=== PATIENT | male | born 1990 | race Two or more races ===

== ENCOUNTER 2017-10-12 23:21 | Inpatient (IN) | payer OTHER, MEDICAID ==
[2017-10-13] MEDS: CEFTRIAXONE 1 GM/50 ML (PMX) 50 ML IVPB ×2 (00:15→17:57)
[2017-10-13 00:33] LABS: ADD MAN DIFF? NO
[2017-10-13] MEDS: SODIUM CHLORIDE 0.9% 1L BAG IV* (00:33)
[2017-10-13 00:36] LABS: BASOPHILS % 0.3 % (0.0-2.0); HEMATOCRIT 44.2 % (42.0-52.0); HEMOGLOBIN 15.5 g/dl (14.0-18.0); LYMPHOCYTES # 0.8 10^3/ul (0.8-2.9); LYMPHOCYTES % 20.2 % (15.0-51.0); MEAN CORPUSCULAR HEMOGLOBIN 30.9 pg (29.0-33.0); MEAN CORPUSCULAR HGB CONC 35.1 g/dl (32.0-37.0); MEAN PLATELET VOLUME 9.8 fl (7.4-10.4); MONOCYTE # 0.4 10^3/ul (0.3-0.9); MONOCYTES % 9.9 % (0.0-11.0); NEUTROPHIL # 2.7 10^3/ul (1.6-7.5); NEUTROPHILS % 69.1 % (39.0-77.0); PLATELET COUNT 190 10^3/UL (140-415); RED BLOOD COUNT 5.02 10^6/ul (4.70-6.10)
[2017-10-13 00:36] LABS: WHITE BLOOD COUNT 3.9 10^3/ul (4.8-10.8)
[2017-10-13] MEDS: ACETAMINOPHEN 650 MG SUPP PR (01:00)
[2017-10-13 01:03] LABS: LACTIC ACID 0.9 mmol/L (0.5-2.0)
[2017-10-13] MEDS: OSELTAMIVIR PHOSPHATE (6 MG/ML PO SYG) PO (01:31)
[2017-10-13 01:36] LABS: INR 1.09; PROTIME 14.2 Sec (11.9-14.9); PT RATIO 1.1
[2017-10-13 01:37] LABS: PARTIAL THROMBOPLASTIN TIME 32.1 Sec (25.0-35.0)
[2017-10-13 01:49] LABS: ALANINE AMINOTRANSFERASE 18 IU/L (13-69); ALBUMIN 3.5 g/dl (3.3-4.9); ALBUMIN/GLOBULIN RATIO 1.09; ALKALINE PHOSPHATASE 61 IU/L (42-121); ANION GAP 21 (8-16); ASPARTATE AMINO TRANSFERASE 24 IU/L (15-46); BILIRUBIN,INDIRECT 0.4 mg/dl (0-1.1); BILIRUBIN,TOTAL 0.4 mg/dl (0.2-1.3); BLOOD UREA NITROGEN 15 mg/dl (7-20); CALCIUM 8.3 mg/dl (8.4-10.2); CARBON DIOXIDE 20 mmol/L (21-31); CHLORIDE 108 mmol/L (97-110); CREATININE 0.88 mg/dl (0.61-1.24); GLUCOSE 93 mg/dl (70-220); LIPASE 96 U/L (23-300); POTASSIUM 3.9 mmol/L (3.5-5.1); SODIUM 145 mmol/L (135-144); TOTAL PROTEIN 6.7 g/dl (6.1-8.1)
[2017-10-13] MEDS: FAMOTIDINE 20 MG INJ IV ×3 (02:00→20:22)
[2017-10-13] MEDS ORDERED: NACL 0.9% 3 ML SYG IV (02:00)
[2017-10-13 02:24] LABS: TROPONIN-I < 0.012 ng/ml (0.00-0.12)
[2017-10-13 03:16] LABS: ADD UMIC YES; UR ASCORBIC ACID 40 mg/dL (NEGATIVE); UR BILIRUBIN (Dip) NEGATIVE (NEGATIVE); UR BLOOD (Dip) NEGATIVE (NEGATIVE); UR CLARITY SLIGHTLY CLOUDY (CLEAR); UR COLOR YELLOW (YELLOW); UR GLUCOSE (Dip) NEGATIVE (NEGATIVE); UR KETONES (Dip) 1+ mg/dL (NEGATIVE); UR LEUKOCYTE ESTERASE (Dip) NEGATIVE Leu/ul (NEGATIVE); UR MUCUS MANY /HPF (NONE SEEN); UR NITRITE (Dip) NEGATIVE (NEGATIVE); UR RBC 0 /HPF (0-5); UR SPECIFIC GRAVITY (Dip) 1.033 (1.003-1.030); UR TOTAL PROTEIN (Dip) 1+ mg/dl (NEGATIVE); UR UROBILINOGEN (Dip) NEGATIVE (NEGATIVE); UR WBC 9 /HPF (0-5)
[2017-10-13 04:28] LABS: LACTIC ACID 0.8 mmol/L (0.5-2.0)
[2017-10-13] MEDS: SOD CHLORIDE 0.9% 1,000 ML IV ×2 (04:32→14:53)
[2017-10-13 06:32] LABS: LACTIC ACID 0.9 mmol/L (0.5-2.0)
[2017-10-13] MEDS ORDERED: ALPRAZOLAM 0.5 MG TAB PO (16:30)
[2017-10-13] MEDS: ACETAMINOPHEN 325 MG TAB PO (17:07)
[2017-10-13] MEDS: OSELTAMIVIR 75 MG CAP PO (17:08)
[2017-10-13] MEDS: 1/2 NS + KCL 20 MEQ 1,000 ML IV (17:57)
[2017-10-13] MEDS: L ACIDOPHIL/B LACTIS/B LONGUM CAPSULE PO ×2 (17:57→20:23)
[2017-10-13] MEDS: ONDANSETRON 4 MG TAB PO (18:02)
[2017-10-13] MEDS ORDERED: HYDROCODONE/APAP (5/325) TAB PO (19:30)
[2017-10-13] MEDS: HYDROCODONE/APAP (5/325) TAB PO (19:36)
[2017-10-13] MEDS ORDERED: BUDESONIDE (NEB) 0.5MG/2ML AMP (19:39)
[2017-10-13] MEDS: BUDESONIDE (NEB) 0.5MG/2ML AMP INH (20:44)
[2017-10-14] MEDS: SOD CHLORIDE 0.9% 1,000 ML IV (04:13)
[2017-10-14] MEDS: 1/2 NS + KCL 20 MEQ 1,000 ML IV ×2 (05:19→17:47)
[2017-10-14] MEDS: INFLUENZA VIRUS VACCINE 0.5 ML (DISPENSING) IM* (09:00)
[2017-10-14] MEDS: BUDESONIDE (NEB) 0.5MG/2ML AMP INH ×3 (09:00→19:27)
[2017-10-14] MEDS: FAMOTIDINE 20 MG INJ IV ×2 (09:34→20:54)
[2017-10-14] MEDS: L ACIDOPHIL/B LACTIS/B LONGUM CAPSULE PO ×2 (09:39→20:54)
[2017-10-14] MEDS ORDERED: LORAZEPAM 2 MG INJ IV (11:30)
[2017-10-14] MEDS: OSELTAMIVIR 75 MG CAP PO ×2 (12:04→20:55)
[2017-10-14] MEDS: ALBUTEROL 0.083% (NEB) 2.5 MG/3 ML AMP NEB (13:01)
[2017-10-14] MEDS: CEFTRIAXONE 1 GM/50 ML (PMX) 50 ML IVPB (17:10)
[2017-10-14 18:07] LABS: ANION GAP 15 (8-16); BLOOD UREA NITROGEN 11 mg/dl (7-20); CALCIUM 8.5 mg/dl (8.4-10.2); CARBON DIOXIDE 28 mmol/L (21-31); CHLORIDE 98 mmol/L (97-110); CREATININE 0.73 mg/dl (0.61-1.24); GLUCOSE 89 mg/dl (70-220); SODIUM 137 mmol/L (135-144)
[2017-10-14] MEDS ORDERED: ACETAMINOPHEN 325 MG TAB PO (19:00)
[2017-10-14] MEDS: LEVETIRACETAM 500 MG (PMX) 100 ML IVPB (20:55)
[2017-10-15] MEDS: 1/2 NS + KCL 20 MEQ 1,000 ML IV ×2 (08:00→21:37)
[2017-10-15] MEDS: L ACIDOPHIL/B LACTIS/B LONGUM CAPSULE PO ×2 (08:01→21:37)
[2017-10-15] MEDS: OSELTAMIVIR 75 MG CAP PO ×2 (08:01→21:37)
[2017-10-15] MEDS: FAMOTIDINE 20 MG INJ IV ×2 (08:02→21:37)
[2017-10-15] MEDS: LEVETIRACETAM 500 MG (PMX) 100 ML IVPB ×2 (09:25→21:38)
[2017-10-15] MEDS: ENOXAPARIN 40 MG/0.4 ML SYG SC (09:39)
[2017-10-15] MEDS: BUDESONIDE (NEB) 0.5MG/2ML AMP INH ×2 (10:40→22:20)
[2017-10-15 11:10] LABS: ADD MAN DIFF? NO
[2017-10-15 11:21] LABS: BASOPHILS % 0.2 % (0.0-2.0); EOSINOPHILS # 0.1 10^3/ul (0.0-0.5); HEMATOCRIT 40.2 % (42.0-52.0); HEMOGLOBIN 14.5 g/dl (14.0-18.0); LYMPHOCYTES # 1.5 10^3/ul (0.8-2.9); LYMPHOCYTES % 32.7 % (15.0-51.0); MEAN CORPUSCULAR HEMOGLOBIN 31.2 pg (29.0-33.0); MEAN CORPUSCULAR HGB CONC 36.1 g/dl (32.0-37.0); MEAN CORPUSCULAR VOLUME 86.5 fl (82.0-101.0); MEAN PLATELET VOLUME 9.8 fl (7.4-10.4); MONOCYTE # 0.3 10^3/ul (0.3-0.9); MONOCYTES % 7.3 % (0.0-11.0); NEUTROPHIL # 2.6 10^3/ul (1.6-7.5); NEUTROPHILS % 57.6 % (39.0-77.0); PLATELET COUNT 167 10^3/UL (140-415); RED BLOOD COUNT 4.65 10^6/ul (4.70-6.10); RED CELL DISTRIBUTION WIDTH 12.9 % (11.5-14.5)
[2017-10-15 11:21] LABS: WHITE BLOOD COUNT 4.6 10^3/ul (4.8-10.8)
[2017-10-15 11:50] LABS: ANION GAP 16 (8-16); BLOOD UREA NITROGEN 7 mg/dl (7-20); CALCIUM 8.9 mg/dl (8.4-10.2); CARBON DIOXIDE 26 mmol/L (21-31); CHLORIDE 103 mmol/L (97-110); CREATININE 0.67 mg/dl (0.61-1.24); GLUCOSE 78 mg/dl (70-220); PHOSPHORUS 3.9 mg/dl (2.5-4.9); POTASSIUM 4.1 mmol/L (3.5-5.1); SODIUM 141 mmol/L (135-144)
[2017-10-15] MEDS: CEFTRIAXONE 1 GM/50 ML (PMX) 50 ML IVPB (17:43)
[2017-10-16] MEDS: BUDESONIDE (NEB) 0.5MG/2ML AMP INH ×2 (09:22→19:01)
[2017-10-16] MEDS: L ACIDOPHIL/B LACTIS/B LONGUM CAPSULE PO ×2 (09:48→20:34)
[2017-10-16] MEDS: OSELTAMIVIR 75 MG CAP PO ×2 (09:48→20:34)
[2017-10-16] MEDS: FAMOTIDINE 20 MG INJ IV ×2 (09:50→20:34)
[2017-10-16] MEDS: ENOXAPARIN 40 MG/0.4 ML SYG SC (10:13)
[2017-10-16] MEDS: 1/2 NS + KCL 20 MEQ 1,000 ML IV ×2 (10:16→23:34)
[2017-10-16] MEDS: LEVETIRACETAM 500 MG (PMX) 100 ML IVPB ×2 (10:16→20:34)
[2017-10-16] MEDS: CEFTRIAXONE 1 GM/50 ML (PMX) 50 ML IVPB (17:33)
[2017-10-17] MEDS: BUDESONIDE (NEB) 0.5MG/2ML AMP INH (08:10)
[2017-10-17] MEDS: L ACIDOPHIL/B LACTIS/B LONGUM CAPSULE PO (08:51)
[2017-10-17] MEDS: LEVETIRACETAM 500 MG (PMX) 100 ML IVPB (08:51)
[2017-10-17] MEDS: OSELTAMIVIR 75 MG CAP PO (08:51)
[2017-10-17] MEDS: FAMOTIDINE 20 MG INJ IV (08:52)
[2017-10-17] MEDS: ENOXAPARIN 40 MG/0.4 ML SYG SC (08:53)
[2017-10-17] MEDS: 1/2 NS + KCL 20 MEQ 1,000 ML IV (14:50)
== END 2017-10-17 16:15 | disposition home or self-care (01) | DRG 194 ==
LOC: E/R 23:21 → MS2 10-15 14:49 → TEL 10-13 01:15
PROVIDERS: Internal Medicine
DX: J09.X2 Influenza due to identified novel influenza A virus with other respiratory manifestations (principal); E87.0 Hyperosmolality and hypernatremia; Z93.0 Tracheostomy status; Q75.4 Mandibulofacial dysostosis; R63.0 Anorexia; Z68.21 Body mass index [BMI] 21.0-21.9, adult; G40.909 Epilepsy, unspecified, not intractable, without status epilepticus; R91.8 Other nonspecific abnormal finding of lung field; F41.9 Anxiety disorder, unspecified; J06.9 Acute upper respiratory infection, unspecified
CPT/HCPCS: 36415; 70450; 71010; 80048; 80053; 81001; 83605; 83690; 83735; 84100; 84484; 85025; 85610; 85730; 86850; 86900; 86901; 87040; 87081; 87086; 87400; 90686; 94640; 94664; 95819; 96374; 99291-25